=== PATIENT | female | born 1995 | race Caucasian/White ===

== ENCOUNTER 2018-01-28 04:54 | Emergency (ER) | payer OTHER ==
[~2018-01-28] VITALS: Ht 165.1 cm; Wt 68.0 kg
[2018-01-28] MEDS ORDERED: JUNEL FE 1-201 EACH PO (05:08)
[2018-01-28 05:33] LABS: URINE BILIRUBIN 1+ (Negative); URINE BLOOD TRACE (Negative); URINE CLARITY CLEAR; URINE COLOR YELLOW; URINE GLUCOSE-RANDOM* NEGATIVE (Negative); URINE KETONES 2+ (Negative); URINE LEUKOCYTES-REFLEX NEGATIVE (Negative); URINE NITRITE-REFLEX NEGATIVE (Negative); URINE PROTEIN (DIPSTICK) 1+ (Negative); URINE SPECIFIC GRAVITY >= 1.030 (1.005-1.035)
[2018-01-28 05:35] LABS: ABSOLUTE NEUTROPHILS 8.3 thou/uL (1.4-8.2); BASOPHILS 0.2 % (0.0-2.0); EOSINOPHILS 0.2 % (0.0-3.0); HEMATOCRIT 43.5 % (37.0-47.0); LYMPHOCYTES 10.4 % (24.0-44.0); MCHC 34.5 g/dL (28.0-37.0); MONOCYTES 3.1 % (1.0-8.0); PLATELET COUNT 310 thou/uL (150-400); POLYS 86.1 % (36.0-66.0); RDW 12.6 % (10.5-14.5); WBC 9.7 thou/uL (4.0-11.0)
[2018-01-28 05:41] LABS: CALCIUM 9.4 mg/dL (8.5-10.1); CREATININE 0.8 mg/dL (0.6-1.0); POTASSIUM 3.9 mmol/L (3.5-5.1)
[2018-01-28 05:45] LABS: ICTOTEST (BILI CONFIRMATORY) Positive (Negative)
[2018-01-28 05:47] LABS: ALBUMIN 4.4 g/dL (3.4-5.0); DIRECT BILIRUBIN 0.1 mg/dL (<0.1-0.3); TOTAL BILIRUBIN 0.5 mg/dL (<0.1-1.0); TOTAL PROTEIN 7.7 g/dL (6.4-8.2)
[2018-01-28 06:35] LABS: SQUAMOUS None Seen /LPF (0-3)
[2018-01-28 07:03] LABS: BACTERIA-REFLEX 1-9 Few /HPF (None Seen); CRYSTALS None Seen /LPF (None Seen); MUCUS 0-3 Light strn/LPF (None Seen); URINE RBC 0-2 Rare /HPF (0-2); URINE WBC-REFLEX None Seen /HPF (0-5)
[2018-01-28] MEDS ORDERED: ZOFRAN ODT4 MG PO (07:20)
[2018-01-28] MEDS ORDERED: PHENERGAN 25 MG25 M1 PO (07:20)
[2018-01-28 07:42] VITALS: BP 100/67
== END 2018-01-28 07:43 | disposition home or self-care (01) ==
LOC: ER 04:54
PROVIDERS: Emergency Medicine
DX: K56.7 Ileus, unspecified (principal); R11.2 Nausea with vomiting, unspecified